=== PATIENT | male | born 1960 | race African-American/Black ===

== ENCOUNTER 2020-03-06 18:20 | Inpatient (IN) | payer MEDICAID, OTHER ==
[~2020-03-06] VITALS: Ht 177.8 cm; Wt 81.6 kg
[~2020-03-06 18:20] MED LIST: ASCO-339 PO; BENZ1TAB7 PO; DOCU-138 PO; FLUO10CA25 PO; FURO-152 PO; PANT40TA4 PO; TEMA15CA5 PO
[2020-03-06] MEDS ORDERED: ACETAMINOPHEN 325MG TABLET PO STA (18:38)
[2020-03-06] MEDS ORDERED: CEFTRIAXONE 1 G PREMIX 50 ML IV ONE (18:45)
[2020-03-06] MEDS ORDERED: AZITHROMYCIN 500 MG in DEXT 5% WATER 250 ML IV ONE (18:45)
[2020-03-06 18:59] LABS: BG BASE EXCESS -2.3 mmol/L (-2.0-2.0); BG CARBOXYHEMOGLOBIN 0.5 % (0.5-1.5); BG DEOXYHEMOGLOBIN 8.2 % (0.0-5.0); BG FRACTION INSPIRED OXYGEN 21; BG HCO3 ACT 19.5 mmol/L (22.0-26.0); BG METHEMOGLOBIN 0.3 % (0.0-1.5); BG OXYGEN SATURATION 91.7 % (92.0-98.5); BG PCO2 25.2 mmHg (35.0-45.0); BG PH 7.507 (7.350-7.450); BG PO2 53.4 mmHg (75.0-100.0); BG SAMPLE SITE RIGHT RADIAL; BG TOTAL HEMOGLOBIN 11.4 g/dL (12.0-18.0); BG VENT MODE ROOM AIR
[2020-03-06 18:59] LABS: HEMATOCRIT. 34.1 % (42.0-52.0); HEMOGLOBIN. 11.4 g/dL (14.0-18.0); MEAN CORPUSCULAR HEMOGLOBIN 26.5 pg (28.0-32.0); MEAN CORPUSCULAR VOLUME 79.5 fL (80.0-94.0); MEAN PLATELET VOLUME 8.7 fl (7.4-10.4); PLATELET 218 x1000/uL (130-400); RED BLOOD CELL COUNT 4.29 mill/uL (4.7-6.1); RED CELL DISTRIBUTION WIDTH 16.3 % (11.6-14.6)
[2020-03-06 19:08] LABS: CHLORIDE 100 mEq/L (98-107)
[2020-03-06 19:10] LABS: CLARITY URINE CLEAR (CLEAR); COLOR URINE YELLOW (YELLOW); KETONES URINE NEGATIVE (NEGATIVE); LEUKOCYTE ESTERASE URINE NEGATIVE (NEGATIVE); NITRITE URINE NEGATIVE (NEGATIVE); OCCULT BLOOD URINE NEGATIVE (NEGATIVE); PH URINE 5.5 (4.5-8.0); PROTEIN URINE 2+ (NEGATIVE); SPECIFIC GRAVITY URINE 1.018 (1.005-1.030)
[2020-03-06 19:13] LABS: ETHANOL BLOOD < 10 mg/dL
[2020-03-06 19:14] LABS: D-DIMER 1.78 mg/L FEU (<0.50)
[2020-03-06 19:16] LABS: CREATINE KINASE 528 IU/L (39-308)
[2020-03-06 19:20] LABS: PLATELET ESTIMATE NORMAL
[2020-03-06 19:27] LABS: FIBRINOGEN > 850 mg/dL (200-400)
[2020-03-06 19:35] LABS: *AMPHETAMINES SCREEN URINE NEGATIVE (NEGATIVE); *BARBITURATES SCREEN URINE NEGATIVE (NEGATIVE); *BENZODIAZEPINES SCREEN URINE NEGATIVE (NEGATIVE); *COCAINE SCREEN URINE NEGATIVE (NEGATIVE); METHADONE URINE SCREEN NEGATIVE (NEGATIVE)
[2020-03-06 19:37] LABS: CANNABINOID URINE SCREEN NEGATIVE (NEGATIVE); OPIATES URINE SCREEN NEGATIVE (NEGATIVE); PHENCYCLIDINE URINE SCREEN NEGATIVE (NEGATIVE)
[2020-03-06] MEDS ORDERED: LORAZEPAM 2MG/ML CPJ IM ONE (19:45)
[2020-03-06] MEDS ORDERED: OLANZAPINE 10 MG/VIAL IM ONE (19:45)
[2020-03-06 19:56] LABS: C REACTIVE PROTEIN QUANT > 190.0 mg/L (0.0-3.0)
[2020-03-06] MEDS ORDERED: POTASSIUM CHLORIDE 20MEQ TABLET SR PO NR (20:45)
[2020-03-06] MEDS ORDERED: ALBUTEROL 6.7GM HFA INHALER ORI PRN (20:45)
[2020-03-06] MEDS ORDERED: NA PHOS,M-B/NA PHOS,DI-BA ENEMA 118ML PR PRN (20:45)
[2020-03-06] MEDS ORDERED: NITROGLYCERIN 0.4MG TABLET SL SL PRN (20:45)
[2020-03-06] MEDS ORDERED: KETOROLAC 15MG/ML VIAL IV PRN (20:45)
[2020-03-06] MEDS ORDERED: ONDANSETRON HCL 4MG/2ML INJ IV PRN (20:45)
[2020-03-06] MEDS ORDERED: MAGNESIUM/ALUMINUM HYDROXIDE/SIMETHICONE 30ML UDC PO PRN (20:45)
[2020-03-06] MEDS ORDERED: GUAIFENESIN 200MG/10ML SUGAR FREE UDC PO PRN (20:45)
[2020-03-06] MEDS ORDERED: CLONIDINE 0.1MG TABLET PO PRN (20:45)
[2020-03-06] MEDS ORDERED: ACETAMINOPHEN 325MG TABLET PO PRN (20:45)
[2020-03-06] MEDS ORDERED: DOCUSATE SODIUM 100MG CAPSULE PO PRN (20:45)
[2020-03-06] MEDS: ENOXAPARIN 40MG/0.4ML SYR SUBCUT SCH (21:00)
[2020-03-06] MEDS: FAMOTIDINE 20MG TABLET PO SCH (21:00)
[2020-03-06] MEDS: ASCORBIC ACID 500 MG TABLET PO SCH (21:00)
[2020-03-06 21:41] LABS: TOTAL IRON BINDING CAPACITY 246 ug/dL (250-450)
[2020-03-06] MEDS: ACETAMINOPHEN 325MG TABLET PO PRN (23:14)
[2020-03-06 23:40] LABS: CREATINE KINASE 791 IU/L (39-308)
[2020-03-06 23:41] LABS: CREATINE KINASE MB FRACTION 2.3 ng/mL (0.5-3.6)
[2020-03-06] MEDS: ZOLPIDEM TARTRATE 5MG TABLET PO PRN (23:48)
[2020-03-07 05:46] LABS: CREATINE KINASE MB FRACTION 2.4 ng/mL (0.5-3.6)
[2020-03-07 05:56] LABS: CREATINE KINASE 1059 IU/L (39-308)
[2020-03-07 08:30] VITALS: BP 107/63
[2020-03-07 08:57] VITALS: BP 107/63
[2020-03-07] MEDS: ASCORBIC ACID 500 MG TABLET PO SCH ×2 (09:05→21:25)
[2020-03-07] MEDS: ASPIRIN 325MG EC TABLET PO SCH (09:05)
[2020-03-07] MEDS: ZINC SULFATE 220 MG ( 50 ) CAPSULE PO SCH (09:05)
[2020-03-07] MEDS: ACETAMINOPHEN 325MG TABLET PO PRN (09:05)
[2020-03-07] MEDS: GUAIFENESIN/DM 600MG/30MG ER TAB 12HR PO SCH ×3 (09:08→21:25)
[2020-03-07] MEDS: FAMOTIDINE 20MG TABLET PO SCH ×2 (09:09→21:25)
[2020-03-07 12:00] VITALS: BP 99/53
[2020-03-07] MEDS ORDERED: VANCOMYCIN 1500MG in DEXTROSE 5% WATER 250ML IV SCH (12:00)
[2020-03-07 16:00] VITALS: BP 100/64
[2020-03-07] MEDS ORDERED: CEFTRIAXONE 1,000 MG in DEXTROSE 5% WATER 50 ML IV SCH (19:00)
[2020-03-07 20:00] VITALS: BP 92/56
[2020-03-07] MEDS ORDERED: AZITHROMYCIN 500 MG in DEXT 5% WATER 250 ML IV SCH (21:00)
[2020-03-07] MEDS: ZOLPIDEM TARTRATE 5MG TABLET PO PRN (21:25)
[2020-03-07] MEDS: ENOXAPARIN 40MG/0.4ML SYR SUBCUT SCH (21:25)
[2020-03-07] MEDS: VANCOMYCIN 750 MG PREMIX 150 ML IV SCH (23:56)
[2020-03-08] VITALS (7 sets, daily range): BP systolic 82–108; BP diastolic 48–62
[2020-03-08 05:16] LABS: HEMATOCRIT. 31.2 % (42.0-52.0); HEMOGLOBIN. 10.3 g/dL (14.0-18.0); MEAN CORPUSCULAR HEMOGLOBIN 25.8 pg (28.0-32.0); MEAN PLATELET VOLUME 9.2 fl (7.4-10.4); PLATELET 248 x1000/uL (130-400); RED CELL DISTRIBUTION WIDTH 16.2 % (11.6-14.6)
[2020-03-08 05:20] LABS: CHLORIDE 105 mEq/L (98-107)
[2020-03-08] MEDS: FAMOTIDINE 20MG TABLET PO SCH ×2 (08:26→22:39)
[2020-03-08] MEDS: GUAIFENESIN/DM 600MG/30MG ER TAB 12HR PO SCH ×2 (08:26→21:18)
[2020-03-08] MEDS: VANCOMYCIN 750 MG PREMIX 150 ML IV SCH ×2 (08:26→21:17)
[2020-03-08] MEDS: ZINC SULFATE 220 MG ( 50 ) CAPSULE PO SCH (08:26)
[2020-03-08] MEDS: ASCORBIC ACID 500 MG TABLET PO SCH ×2 (08:26→21:18)
[2020-03-08] MEDS: ASPIRIN 325MG EC TABLET PO SCH (08:26)
[2020-03-08 10:21] LABS: PLATELET ESTIMATE NORMAL
[2020-03-08] MEDS: CEFTRIAXONE 1,000 MG in DEXTROSE 5% WATER 50 ML IV SCH (16:25)
[2020-03-08] MEDS ORDERED: AZITHROMYCIN 500 MG in DEXT 5% WATER 250 ML IV SCH (18:00)
[2020-03-08] MEDS: ENOXAPARIN 40MG/0.4ML SYR SUBCUT SCH (21:17)
[2020-03-09] VITALS (7 sets, daily range): BP systolic 89–114; BP diastolic 48–66
[2020-03-09] MEDS: ASPIRIN 325MG EC TABLET PO SCH (08:05)
[2020-03-09] MEDS: VANCOMYCIN 750 MG PREMIX 150 ML IV SCH ×2 (08:05→17:10)
[2020-03-09] MEDS: ZINC SULFATE 220 MG ( 50 ) CAPSULE PO SCH (08:05)
[2020-03-09] MEDS: ASCORBIC ACID 500 MG TABLET PO SCH ×2 (08:06→20:24)
[2020-03-09] MEDS: GUAIFENESIN/DM 600MG/30MG ER TAB 12HR PO SCH ×2 (08:06→20:24)
[2020-03-09] MEDS: FAMOTIDINE 20MG TABLET PO SCH ×2 (08:06→20:24)
[2020-03-09 08:40] LABS: HEMATOCRIT. 30.4 % (42.0-52.0); HEMOGLOBIN. 10.3 g/dL (14.0-18.0); MEAN CORPUSCULAR HEMOGLOBIN 26.4 pg (28.0-32.0); MEAN CORPUSCULAR VOLUME 77.7 fL (80.0-94.0); MEAN PLATELET VOLUME 9.1 fl (7.4-10.4); PLATELET 312 x1000/uL (130-400); RED CELL DISTRIBUTION WIDTH 16.1 % (11.6-14.6)
[2020-03-09 08:51] LABS: CHLORIDE 105 mEq/L (98-107)
[2020-03-09 11:46] LABS: PLATELET ESTIMATE NORMAL
[2020-03-09] MEDS ORDERED: VANCOMYCIN 750 MG PREMIX 150 ML IV SCH (14:00)
[2020-03-09] MEDS: CEFTRIAXONE 1,000 MG in DEXTROSE 5% WATER 50 ML IV SCH (16:12)
[2020-03-09] MEDS: ENOXAPARIN 40MG/0.4ML SYR SUBCUT SCH (20:24)
[2020-03-10] VITALS: BP 100/56
[2020-03-10] MEDS: VANCOMYCIN 750 MG PREMIX 150 ML IV SCH ×2 (01:24→10:33)
[2020-03-10 04:00] VITALS: BP 97/58
[2020-03-10 08:00] VITALS: BP 98/61
[2020-03-10] MEDS: ASCORBIC ACID 500 MG TABLET PO SCH (08:19)
[2020-03-10] MEDS: ZINC SULFATE 220 MG ( 50 ) CAPSULE PO SCH (08:19)
[2020-03-10] MEDS: GUAIFENESIN/DM 600MG/30MG ER TAB 12HR PO SCH (08:20)
[2020-03-10] MEDS: FAMOTIDINE 20MG TABLET PO SCH (08:20)
[2020-03-10] MEDS: ASPIRIN 325MG EC TABLET PO SCH (08:21)
[2020-03-10 12:00] VITALS: BP_SYST 95; BP_SYST 98; BP_DIAS 56; BP_DIAS 57
[2020-03-10] MEDS ORDERED: VANCOMYCIN 1 G PREMIX 200 ML IV SCH (18:00)
== END 2020-03-10 15:00 | disposition home or self-care (01) | DRG 720 ==
LOC: ER 18:20 → MICUSO 19:58 → EDBEDREQ 20:03 → 7WST 03-07 07:39 → 8WST 03-08 12:01
PROVIDERS: ADMIT Internal Medicine; ATTEND Internal Medicine
DX: A41.9 Sepsis, unspecified organism (principal); J96.01 Acute respiratory failure with hypoxia; N17.0 Acute kidney failure with tubular necrosis; D63.8 Anemia in other chronic diseases classified elsewhere; E44.0 Moderate protein-calorie malnutrition; E78.5 Hyperlipidemia, unspecified; E87.1 Hypo-osmolality and hyponatremia; E87.6 Hypokalemia; F20.9 Schizophrenia, unspecified; I11.0 Hypertensive heart disease with heart failure; L03.116 Cellulitis of left lower limb; M62.82 Rhabdomyolysis; Z20.828 Contact with and (suspected) exposure to other viral communicable diseases; G92 Toxic encephalopathy; D72.810 Lymphocytopenia; E86.1 Hypovolemia; R74.0 Nonspecific elevation of levels of transaminase and lactic acid dehydrogenase [LDH]; I50.33 Acute on chronic diastolic (congestive) heart failure; Z86.73 Personal history of transient ischemic attack (TIA), and cerebral infarction without residual deficits; Z87.891 Personal history of nicotine dependence; Z79.84 Long term (current) use of oral hypoglycemic drugs; Z79.899 Other long term (current) drug therapy; Z68.25 Body mass index [BMI] 25.0-25.9, adult
CPT/HCPCS: 36415; 36600; 71045; 80048; 80053; 80061; 80202; 80305; 80320; 81003; 82140; 82375; 82550; 82553; 82607; 82728; 82746; 82805; 83036; 83540; 83550; 83605; 83615; 83880; 84145; 84484; 85025; 85379; 85384; 86140; 87635; 87804; 93005; 93970; 99285; J0456; J0696; J1650; J2060; J3370; J3490; J7060; G0480